=== PATIENT | female | born 2000 | race Hispanic/Latino ===

== ENCOUNTER 2019-10-01 20:05 | Emergency (ER) | payer BC ==
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
== END 2019-10-01 21:36 | disposition home or self-care (01) ==
LOC: ERS 20:05
DX: O9A.211 Injury, poisoning and certain other consequences of external causes complicating pregnancy, first trimester (principal); S80.12XA Contusion of left lower leg, initial encounter; S80.11XA Contusion of right lower leg, initial encounter; S10.91XA Abrasion of unspecified part of neck, initial encounter; Z3A.10 10 weeks gestation of pregnancy; V47.5XXA Car driver injured in collision with fixed or stationary object in traffic accident, initial encounter
CPT/HCPCS: 76856; 93976; G0390